=== PATIENT | female | born 1985 | race Caucasian/White ===

== ENCOUNTER 2021-11-17 10:09 | Emergency (ER) | payer OTHER | END 2021-11-17 10:47 | disposition left against medical advice (07) | LOC: ER1 10:09 | DX: Z53.21 Procedure and treatment not carried out due to patient leaving prior to being seen by health care provider (principal) ==

== ENCOUNTER 2021-11-17 11:26 | Emergency (ER) | payer OTHER ==
[2021-11-17 12:14] LABS: HEMOGLOBIN 13.5 gm/dl (12.3-15.3); RED BLOOD COUNT 4.27 M/UL (4.00-5.10); WHITE BLOOD COUNT 8.9 K/UL (4.5-11.0)
[2021-11-17 12:34] LABS: BUN/CREATININE RATIO 23 (0-10)
== END 2021-11-17 14:10 | disposition home or self-care (01) ==
LOC: ER1 11:26
PROVIDERS: Physician Assistant
DX: N93.8 Other specified abnormal uterine and vaginal bleeding (principal); Z20.822 Contact with and (suspected) exposure to COVID-19; F17.200 Nicotine dependence, unspecified, uncomplicated
CPT/HCPCS: 76830; 80053; 81001; 84703; 85025; 87086; 96372; 99284; J1885; U0002

== ENCOUNTER 2021-12-25 05:25 | Emergency (ER) | payer OTHER ==
[2021-12-25 06:47] LABS: HEMOGLOBIN 13.6 gm/dl (12.3-15.3); RED BLOOD COUNT 4.27 M/UL (4.00-5.10); WHITE BLOOD COUNT 11.8 K/UL (4.5-11.0)
[2021-12-25 06:51] LABS: BUN/CREATININE RATIO 19 (0-10)
== END 2021-12-25 10:30 | disposition home or self-care (01) ==
LOC: ER1 05:25
PROVIDERS: Family Medicine
DX: K80.20 Calculus of gallbladder without cholecystitis without obstruction (principal); F17.210 Nicotine dependence, cigarettes, uncomplicated; F17.290 Nicotine dependence, other tobacco product, uncomplicated
CPT/HCPCS: 80053; 81001; 82550; 82553; 83690; 84484; 84703; 85025; 87040; 93005; 99284; Q9967